=== PATIENT | male | born 1980 | race African-American/Black ===

== ENCOUNTER 2017-03-14 09:05 | Emergency (ER) | payer SELFPAY ==
[2017-03-14 09:10] VITALS: BMI 32.3
--- NOTE | 2017-03-14 09:22 | PDOC ---
History of Present Illness - General History Source: Patient, Old Records Exam Limitations: No Limitations - History of Present Illness Initial Comments: 03/14/17 09:28 The patient is a 36-year-old man with no past medical history who presents to the emergency department via walk-in for further evaluation of palpitations. On ER arrival, patient's heart rate is 94 bpm, oral temperature is 98.8, respiratory rate of 20, blood pressure of 154/98 and an oxygen saturation of 96 % on room air. Patient states that for the past week, he has been experiencing palpitations, described as "a hesitant force within each heart beat'". He states that his palpitations are intermittent, lasting 2 seconds and are sporadic. He also notes associated symptoms of lightheadedness and nausea. He reported experiencing approximately an overall of 50 episodes for the past week. He denies any stressful factors. He denies any caffeine intake. No history personal/family history of heart disease. No other complaints. He denies fever, chills, generalized weakness. He denies chest pain, dizziness, cough, shortness of breath, headache, visual changes, loss of consciousness. He denies abdominal pain, vomiting, diarrhea. No urinary complaints. Allergies: Seasonal Allergies. Past Surgical History: None reported Social History: No tobacco, EtOH and recreational drug use. Primary Care Physician: N/A <Ana Hitchcock - Last Filed: 03/14/17 09:44> <Adama Mahan - Last Filed: 03/14/17 11:02> - General Chief Complaint: Palpitations Stated Complaint: PALPITATIONS Time Seen by Provider: 03/14/17 09:21 Past History <Ana Hitchcock - Last Filed: 03/14/17 09:44> - Past Medical History Other medical history: DENIES - Psycho/Social/Smoking Cessation Hx Anxiety: No Suicidal Ideation: No Smoking Status: No Smoking History: Never smoked Number of Cigarettes Smoked Daily: 0 Hx Alcohol Use: No Drug/Substance Use Hx: No Substance Use Type: None <Adama Mahan - Last Filed: 03/14/17 11:02> - Past Medical History Allergies/Adverse Reactions: Allergies Allergy/AdvReac Type Severity Reaction Status Date / Time No Known Allergies Allergy Verified 03/14/17 09:09 Home Medications: Ambulatory Orders NK [No Known Home Medication] 03/14/17 Review of Systems - Review of Systems Able to Perform ROS?: Yes Comments:: 03/14/17 09:29 GENERAL/CONSTITUTIONAL: No fever or chills. No weakness. HEAD, EYES, EARS, NOSE AND THROAT: No change in vision. No ear pain or discharge. No sore throat. CARDIOVASCULAR: Yes: Palpitations. Lightheadedness. No chest pain or shortness of breath. RESPIRATORY: No cough, wheezing, or hemoptysis. GASTROINTESTINAL: Yes: Nausea. No vomiting, diarrhea or constipation. GENITOURINARY: No dysuria, frequency, or change in urination. MUSCULOSKELETAL: No joint or muscle swelling or pain. No neck or back pain. SKIN: No rash NEUROLOGIC: No headache, vertigo, loss of consciousness, or change in strength/ sensation. ENDOCRINE: No increased thirst. No abnormal weight change. HEMATOLOGIC/LYMPHATIC: No anemia, easy bleeding, or history of blood clots. ALLERGIC/IMMUNOLOGIC: No hives or skin allergy. <Ana Hitchcock - Last Filed: 03/14/17 09:44> *Physical Exam - Vital Signs Last Vital Signs Temp Pulse Resp BP Pulse Ox 98.8 F 97 H 17 154/98 98 03/14/17 09:06 03/14/17 09:23 03/14/17 09:23 03/14/17 09:23 03/14/17 09:23 - Physical Exam Comments: 03/14/17 09:29 GENERAL: Awake, alert, and fully oriented, in no acute distress HEAD: No signs of trauma EYES: PERRLA, EOMI, sclera anicteric, conjunctiva clear ENT: Auricles normal inspection, hearing grossly normal, nares patent, oropharynx clear without exudates. Moist mucosa NECK: Normal ROM, supple, no lymphadenopathy, JVD, or masses LUNGS: Breath sounds equal, clear to auscultation bilaterally. No wheezes, and no crackles HEART: Regular rate and rhythm, normal S1 and S2, no murmurs, rubs or gallops ABDOMEN: Soft, nontender, normoactive bowel sounds. No guarding, no rebound. No masses EXTREMITIES: Normal range of motion, no edema. No clubbing or cyanosis. No cords, erythema, or tenderness NEUROLOGICAL: Cranial nerves II through XII grossly intact. Normal speech, normal gait <Ana Hitchcock - Last Filed: 03/14/17 09:44> - Vital Signs Last Vital Signs Temp Pulse Resp BP Pulse Ox 98.8 F 94 H 20 154/98 96 03/14/17 09:06 03/14/17 09:06 03/14/17 09:06 03/14/17 09:06 03/14/17 09:06 <Adama Mahan - Last Filed: 03/14/17 11:02> Heart Score/ECG Review #1 03/14/17 09:13 Reviewed and interpreted by Dr. Adama Mahan IMPRESSION: Normal sinus rhythm with a rate of 93 bpm. Moderate voltage criteria for LVH. No ST and T wave changes. No change when compared to previous EKG on 02/10/2013. <Ana Hitchcock - Last Filed: 03/14/17 09:44> ED Treatment Course - LABORATORY CBC & Chemistry Diagram: 03/14/17 09:26 03/14/17 09:30 <Adama Mahan - Last Filed: 03/14/17 11:02> Medical Decision Making - Medical Decision Making 03/14/17 09:38 The patient is a 36-year-old man with no past medical history who presents to the emergency department via walk-in for further evaluation of palpitations. On ER arrival, patient's heart rate is 94 bpm, oral temperature is 98.8, respiratory rate of 20, blood pressure of 154/98 and an oxygen saturation of 96 % on room air. Patient states that for the past week, he has been experiencing palpitations, described as "a hesitant force within each heart beat'". He states that his palpitations are intermittent, lasting 2 seconds and are sporadic. He also notes associated symptoms of lightheadedness and nausea. He reported experiencing approximately an overall of 50 episodes for the past week. He denies any stressful factors. He denies any caffeine intake. No history personal/family history of heart disease. No other complaints. Differential diagnoses include but are not limited to: electrolyte abnormality, anxiety, coronary artery disease Will order electrocardiogram, Chest X-Ray and labs. Will reassess. <Ana Hitchcock - Last Filed: 03/14/17 09:44> - Medical Decision Making 03/14/17 10:58 Patient experienced four episodes of hesitation while in ED, but nothing showed up on our monitor/telemetry. CXR unchanged from previous and Labs all unremarkable. EKG is normal and unchanged from previous. Will DC Home to follow up with Cardiology. Dr. Ramirez is station chief. <Adama Mahan - Last Filed: 03/14/17 11:02> *DC/Admit/Observation/Transfer - Attestations Scribe Attestion: 03/14/17 09:29 Documentation prepared by Ana Hitchcock, acting as medical sociologist for Adama Mahan DO. <Ana Hitchcock - Last Filed: 03/14/17 09:44> - Discharge Dispostion Admit: No <Adama Mahan - Last Filed: 03/14/17 11:02> Diagnosis at time of Disposition: Palpitations - Discharge Dispostion Disposition: HOME Condition at time of disposition: Good - Referrals Referrals: Joseph Ramirez MD [Staff Physician] - - Patient Instructions Printed Discharge Instructions: DI for Palpitations Additional Instructions: Mike- All of your tests here today were normal, and eventhough you felt hesitations, we did not see anything abnormal on your monitor. Please follow up with cardiology this coming week. Return to us if any problems. Best- Dr. Adama Mahan
[2017-03-14 09:50] LABS: BASOPHIL 0.8 % (0-2.0); EOSINOPHIL 5.7 % (0-4.5); MCH 28.6 pg (25.7-33.7); MCHC 33.4 g/dl (32.0-35.9); MEAN CELL VOLUME 85.7 fl (80-96); MEAN PLT VOLUME 8.6 fl (7.5-11.1); PLATELET COUNT 249 K/MM3 (134-434); RDW 12.7 % (11.9-15.9); WHITE BLOOD COUNT 5.7 K/mm3 (4.0-10.0)
[2017-03-14 10:09] LABS: ALBUMIN 3.9 g/dl (3.4-5.0); ANION GAP 7 (8-16); BILIRUBIN,TOTAL 0.7 mg/dL (0.2-1.0); CALCIUM 8.9 mg/dL (8.5-10.1); CO2 29 mmol/L (21-32); COCKROFT - GAULT 160; GLUCOSE,RANDOM 130 mg/dL (74-106); SGOT/AST 19 U/L (15-37); SGPT/ALT 28 U/L (12-78)
[2017-03-14 10:11] LABS: ALK PHOS 79 U/L (45-117); TROPONIN I < 0.02 ng/ml (0.00-0.05)
[2017-03-14 10:11] LABS: INR 1.13 (0.82-1.09); PROTHROMBIN TIME (PATIENT) 12.5 SEC (9.98-11.88)
[2017-03-14 11:25] VITALS: BP 157/94; PULSE 87; TEMP 98.2
--- NOTE | 2017-03-15 09:02 | EKG ---
Test Reason : Blood Pressure : / mmHG Vent. Rate : 093 BPM Atrial Rate : 093 BPM P-R Int : 120 ms QRS Dur : 094 ms QT Int : 360 ms P-R-T Axes : 041 -12 019 degrees QTc Int : 447 ms NORMAL SINUS RHYTHM MODERATE VOLTAGE CRITERIA FOR LVH, MAY BE NORMAL VARIANT BORDERLINE ECG WHEN COMPARED WITH ECG OF 10-FEB-2013 19:41, NO SIGNIFICANT CHANGE WAS FOUND Confirmed by KEVIN IRIZARRY MD ([id number]) on 03/15/2017 9:01:59 AM Referred By: Confirmed By:KEVIN IRIZARRY MD
== END 2017-03-14 11:32 | disposition home or self-care (01) ==
LOC: JER 09:05
DX: R00.2 Palpitations (principal)
CPT/HCPCS: 36415; 71010-TC; 80053; 82550; 82553; 84443; 84484; 85025; 85610; 93005; 93010; 99283-25

== ENCOUNTER 2017-10-09 11:52 | Emergency (ER) | payer SELFPAY ==
[2017-10-09 11:57] VITALS: BMI 30.7
--- NOTE | 2017-10-09 12:19 | PDOC ---
History of Present Illness - General History Source: Patient Exam Limitations: No Limitations - History of Present Illness Initial Comments: 10/09/17 12:44 The patient is a 37-year-old male with no significant past medical history, who presents to the emergency department with left-sided abdominal pain for 3 days. He states the pain was initially intermittent, but has been constant for the last 2 days. He describes the pain as a pressure-like sensation, non-radiating, and 7/10 in severity. He has not taken anything for pain. He notes occasional dizziness and mild bilateral back pain but denies dizziness and back pain upon interview. He complains of frequent urination and increased thirst recently. He states his bowel movements are normal. The patient denies chest pain, shortness of breath, or headache. The patient denies fever, chills, nausea, vomit, diarrhea and constipation. The patient denies flank pain, dysuria, urgency and hematuria. Family PMHx: diabetes Allergies: NDKA Past Surgical History: None reported Social History: No toxic habits reported PCP: Dr. Abel Rincon <Pari Granda - Last Filed: 10/09/17 14:13> <Maria Hoffmann - Last Filed: 10/09/17 16:22> - General Chief Complaint: Pain Stated Complaint: LT SIDE PAIN Time Seen by Provider: 10/09/17 12:19 Past History <Pari Granda - Last Filed: 10/09/17 14:13> - Past Medical History COPD: No Other medical history: NONE - Suicide/Smoking/Psychosocial Hx Smoking Status: No Smoking History: Never smoked Number of Cigarettes Smoked Daily: 0 Hx Alcohol Use: No Drug/Substance Use Hx: No Substance Use Type: None <Maria Hoffmann - Last Filed: 10/09/17 16:22> - Past Medical History Allergies/Adverse Reactions: Allergies Allergy/AdvReac Type Severity Reaction Status Date / Time No Known Allergies Allergy Verified 10/09/17 11:56 Home Medications: Ambulatory Orders Ciprofloxacin [Cipro -] 500 mg PO BID #10 tablet 10/09/17 Metformin HCl [Glucophage -] 500 mg PO BID #14 tablet 10/09/17 Polyethylene Glycol 3350 [Miralax (For Bowel Prep) -] 17 gm PO DAILY PRN #1 bottle 10/09/17 Review of Systems - Review of Systems Able to Perform ROS?: Yes Comments:: 10/09/17 12:44 CONSTITUTIONAL: Pt denies fever, chills, weakness HEENT: denies visual changes, sore throat, ear pain RESPIRATORY: denies cough, SOB, hemoptysis CARDIOVASCULAR: denies chest pain, palpitations, lightheadedness, leg swelling GI: (+) abdominal pain. denies nausea, vomiting, diarrhea, constipation, blood per rectum, melena : (+) frequency. denies dysuria, discharge MUSCULOSKELETAL: denies back pain, joint swelling, myalgias SKIN: denies bruising, erythema, rash NEUROLOGICAL: denies headache, numbness, focal weakness, tingling, ataxia, weakness HEMATOLOGIC: denies anemia, easy bruising, easy bleeding <Pari Granda - Last Filed: 10/09/17 14:13> *Physical Exam - Vital Signs Last Vital Signs Temp Pulse Resp BP Pulse Ox 99.3 F 99 H 20 148/94 98 10/09/17 11:53 10/09/17 11:53 10/09/17 11:53 10/09/17 11:53 10/09/17 11:53 - Physical Exam Comments: 10/09/17 12:44 GENERAL: The patient is awake, alert, and fully oriented, Nontoxic - in no acute distress. HEAD: Normocephalic, atraumatic. EYES: extraocular movements intact, sclera anicteric, conjunctiva clear. ENT: Normal voice, moist mucous membranes. NECK: Normal range of motion, supple without lymphadenopathy, JVD, or masses. LUNGS: Breath sounds equal, clear to auscultation bilaterally. No wheezes, no crackles, no rales. HEART: Regular rate and rhythm, normal S1 and S2 without murmur, rub or gallop. ABDOMEN: (+) Mildly distended. Soft, nontender, normoactive bowel sounds. No guarding, no rebound. No masses. No CVA tenderness. EXTREMITIES: Normal range of motion, no edema. No clubbing or cyanosis. No cords , erythema, or tenderness. NEUROLOGICAL: Fully Oriented, Alert, Normal Mood/Affect, Motor Strength 5/5. No facial asymmetry, Normal speech SKIN: Warm, Dry, normal turgor, no rashes or lesions noted. <Pari Granda - Last Filed: 10/09/17 14:13> - Vital Signs Last Vital Signs Temp Pulse Resp BP Pulse Ox 99.3 F 99 H 20 148/94 98 10/09/17 11:53 10/09/17 11:53 10/09/17 11:53 10/09/17 11:53 10/09/17 11:53 <Maria Hoffmann - Last Filed: 10/09/17 16:22> ED Treatment Course - LABORATORY CBC & Chemistry Diagram: 10/09/17 12:45 10/09/17 12:45 - RADIOLOGY Radiograph Interpretation: 10/09/17 14:13 EXAM#: TYPE/EXAM: RESULT: [id number] RAD/ABDOMEN FLAT UPRIGHT Abdomen: Abdominal pain Imaging reveals scoliosis, large heart, clear lung bases and retained stool with no sign of an obstruction. Free air is not seen. Organomegaly is not visualized. The are some minimal degenerative changes. If symptoms persist, further imaging may be of help. Impression: No acute pathology. Large heart. Retained stool. - Medications Given in the ED: ED Medications Discontinued Medications Generic Name Dose Route Start Last Admin Trade Name Soumya PRN Reason Stop Dose Admin Ketorolac Tromethamine 30 mg 10/09/17 12:29 10/09/17 12:32 Toradol Injection - IM 10/09/17 12:30 30 mg ONCE ONE Administration <Pari Granda - Last Filed: 10/09/17 14:13> - LABORATORY CBC & Chemistry Diagram: 10/09/17 12:45 10/09/17 12:45 <Maria Hoffmann - Last Filed: 10/09/17 16:22> Medical Decision Making - Medical Decision Making 10/09/17 12:35 I, Dr. Maria Hoffmann, attest that the scribes documentation that appears above has been prepared under my direction and personally reviewed by me. I confirmed that the note above accurately reflects all work, treatment, procedures, and medical decision-making performed by me. 10/09/17 12:35 Pt presents to ED c/o left side abdominal pain that started 3 days ago was initially intermittent but is now constant 7/10 pain. PT has not taken any meds for pain, pt c/o excessive thirst and urination but no fever , or dysuria, pt with family history of diabetes but he has no medical problems, says he is having nl BM's. Will obtain labs, ua, abdominal xray . Differential diagnosis: uti, diverticulitis, constipation, undiagnosed diabetes Pt's labs noted, pt with bs over 400 with negative ketones, pt given one liter fluid bolus and will repeat bgm. Pt has urien suggestive of early uti and xray shows meod stool, once blood sugar is lower will dc home with metformin 500mg bid, along with 5 days of go and miralax for constipation, Case discussed with Dr. Gilbert, pt to f/u in clinic on for reevLAUTION. Pt AGREES WITH THIS DC PLAN 10/09/17 15:28 10/09/17 15:31 PT'S LEFT SIDE ABDOMINAL PAIN RESOLVED AFTER TORADOL 10/09/17 16:21 repeat blood sugar 283, pt stable for dc home <Maria Hoffmann - Last Filed: 10/09/17 16:22> *DC/Admit/Observation/Transfer - Attestations Scribe Attestion: 10/09/17 12:44 Documentation prepared by Pari Granda, acting as medical tech for Maria Hoffmann MD/. <aPri Granda - Last Filed: 10/09/17 14:13> - Discharge Dispostion Admit: No <Maria Hoffmann - Last Filed: 10/09/17 16:22> Diagnosis at time of Disposition: Diabetes mellitus, UTI (urinary tract infection), Constipation - Discharge Dispostion Disposition: HOME Condition at time of disposition: Stable - Prescriptions Prescriptions: Ciprofloxacin [Cipro -] 500 mg PO BID #10 tablet Metformin HCl [Glucophage -] 500 mg PO BID #14 tablet Polyethylene Glycol 3350 [Miralax (For Bowel Prep) -] 17 gm PO DAILY PRN #1 bottle PRN Reason: Constipation - Referrals Referrals: Abel Rincon MD [Primary Care Provider] - - Patient Instructions Printed Discharge Instructions: Urinary Tract Infection, Type 2 Diabetes, Constipation Additional Instructions: pt to return to ED for fever, inc pain in abdomen,nausea and vomiting or as needed,otherwise Pt to f/ u with pcp on 10-11-17. Pt tot take medication as prescribed
[2017-10-09] MEDS ORDERED: KETOROLAC TROMETHAMINE 30 MG/1 ML VIAL IM ONE (12:29)
[2017-10-09] MEDS ORDERED: KETOROLAC TROMETHAMINE 30 MG/1 ML VIAL ONE (12:32)
[2017-10-09 13:08] LABS: BASOPHIL 0.8 % (0-2.0); EOSINOPHIL 2.4 % (0-4.5); MCH 28.6 pg (25.7-33.7); MCHC 33.2 g/dl (32.0-35.9); MEAN CELL VOLUME 86.1 fl (80-96); MEAN PLT VOLUME 9.6 fl (7.5-11.1); NEUTROPHILS 48.3 % (42.8-82.8); PLATELET COUNT 261 K/MM3 (134-434); RDW 12.6 % (11.9-15.9); WHITE BLOOD COUNT 5.6 K/mm3 (4.0-10.0)
[2017-10-09 13:12] LABS: ALBUMIN 3.9 g/dl (3.4-5.0); ANION GAP 5 (8-16); CALCIUM 9.4 mg/dL (8.5-10.1); CO2 30 mmol/L (21-32); CREATININE 1.1 mg/dL (0.7-1.3); SGOT/AST 15 U/L (15-37); SGPT/ALT 40 U/L (12-78)
[2017-10-09 13:14] LABS: ALK PHOS 124 U/L (45-117); BILIRUBIN,TOTAL 0.3 mg/dL (0.2-1.0); TOT PROT 8.2 g/dl (6.4-8.2)
[2017-10-09 13:16] LABS: GLUCOSE,RANDOM 401 mg/dL (74-106)
[2017-10-09 13:41] LABS: URINE APPEARANCE CLEAR; URINE BILIRUBIN NEGATIVE (NEGATIVE); URINE BLOOD 1+ (NEGATIVE); URINE COLOR LT. YELLOW; URINE GLUCOSE (UA) 2+ (NEGATIVE); URINE KETONE TRACE (NEGATIVE); URINE NITRITE NEGATIVE (NEGATIVE); URINE PROTEIN TRACE (NEGATIVE); URINE UROBILINOGEN 0.2 mg/dL (0.2-1.0)
[2017-10-09 13:56] LABS: URINE RBC 12 /hpf (0-3); URINE WBC 35 /hpf (3-5)
[2017-10-09] MEDS ORDERED: SODIUM CHLORIDE 0.9% 500 ML INFUS.BAG IV STA (14:37)
[2017-10-09] MEDS ORDERED: HEMOQUE TEST 1 EACH EACH ONE (16:13)
[2017-10-09 16:44] VITALS: BP 128/89; PULSE 82; TEMP 98.2
[2017-10-09 19:26] LABS: URINE LEUK ESTERASE Negative (NEGATIVE)
== END 2017-10-09 16:44 | disposition home or self-care (01) ==
LOC: JER 11:52
PROC: 3E0233Z Introduction of Anti-inflammatory into Muscle, Percutaneous Approach (ICD-10-PCS; principal; 2017-10-09)
DX: N39.0 Urinary tract infection, site not specified (principal); K59.00 Constipation, unspecified; E11.9 Type 2 diabetes mellitus without complications; Z79.84 Long term (current) use of oral hypoglycemic drugs
CPT/HCPCS: 36415; 74020-TC; 80053; 81003; 81015; 82009; 83036; 85025; 99283-25

== ENCOUNTER 2018-08-04 17:07 | Emergency (ER) | payer SELFPAY ==
[2018-08-04 17:11] VITALS: BP 139/88; PULSE 89; TEMP 98.5; BMI 30.3
--- NOTE | 2018-08-04 17:11 | PDOC ---
Rapid Medical Evaluation Time Seen by Provider: 08/04/18 17:08 Medical Evaluation: Allergies Allergy/AdvReac Type Severity Reaction Status Date / Time No Known Allergies Allergy Verified 10/09/17 11:56 I have performed a brief in-person evaluation of this patient. The patient presents with a chief complaint of: left low back, left elbow and left lower leg pain s/p slip and fall at home yesterday. No LOC. No head trauma. Pertinent physical exam findings: Patient is ambulatory with normal gait. Minimal TTP of left lumbar spine. No midline lumbar spine TTP or step offs I have ordered the following: nothing The patient will proceed to the ED for further evaluation. Discharge Disposition - Diagnosis Back pain - Referrals - Patient Instructions - Post Discharge Activity
[2018-08-04] MEDS ORDERED: IBUPROFEN 600 MG TABLET (FP) PO ONE ×2 (17:24→17:29)
--- NOTE | 2018-08-04 17:43 | PDOC ---
History of Present Illness - General Chief Complaint: Injury Stated Complaint: PAIN, ACUTE Time Seen by Provider: 08/04/18 17:08 History Source: Patient Exam Limitations: No Limitations - History of Present Illness Initial Comments: 08/04/18 17:31 37 yr male no pmhx states he fell down one step yesterday and hit his low back to step and left lower calf. no head trauma , pt did not take any meds for pain. Pt c/o pain to left lower ribs in the back and calf pain. pt ambulating freely. Severity: reports: mild Past History - Past Medical History Allergies/Adverse Reactions: Allergies Allergy/AdvReac Type Severity Reaction Status Date / Time No Known Allergies Allergy Verified 08/04/18 17:08 Home Medications: Ambulatory Orders Ciprofloxacin [Cipro -] 500 mg PO BID #10 tablet 10/09/17 Polyethylene Glycol 3350 [Miralax (For Bowel Prep) -] 17 gm PO DAILY PRN #1 bottle 10/09/17 metFORMIN HCL [Glucophage -] 500 mg PO BID #14 tablet 10/09/17 COPD: No DVT: No - Suicide/Smoking/Psychosocial Hx Smoking Status: No Smoking History: Never smoked Number of Cigarettes Smoked Daily: 0 Information on smoking cessation initiated: No Hx Alcohol Use: No Drug/Substance Use Hx: No Substance Use Type: None Trauma Specific PMHX - Complaint Specific PMHX Arthritis: No Back Injury: No Neck Injury: No Hx Sacro Iliac Joint Dysfunction: No Review of Systems - Review of Systems Able to Perform ROS?: Yes Is the patient limited Mac[place] proficient: No Constitutional: No: Symptoms Reported HEENTM: No: Symptoms Reported Respiratory: No: Symptoms reported Cardiac (ROS): No: Symptoms Reported ABD/GI: No: Symptoms Reported : No: Symptoms Reported Musculoskeletal: Yes: Symptoms Reported Integumentary: No: Symptoms Reported Neurological: No: Symptoms reported *Physical Exam - Vital Signs Last Vital Signs Temp Pulse Resp BP Pulse Ox 98.5 F 89 18 139/88 100 08/04/18 17:08 08/04/18 17:08 08/04/18 17:08 08/04/18 17:08 08/04/18 17:08 - Physical Exam General Appearance: Yes: Nourished, Appropriately Dressed HEENT: positive: EOMI, SAPNA Neck: positive: Supple. negative: Tender Respiratory/Chest: positive: Lungs Clear, Normal Breath Sounds Cardiovascular: positive: Regular Rhythm, Regular Rate Gastrointestinal/Abdominal: positive: Normal Bowel Sounds, Soft. negative: Tender Musculoskeletal: positive: Normal Inspection, Other (TTP left lower ribs posteriorly, no crepitus, skin intact no echymosis ). negative: CVA Tenderness , CVA Tenderness (R), CVA Tenderness (L), Vertebral Tenderness Extremity: positive: Normal Capillary Refill, Tender (lateral left calf soft tissue tenderness no bony tenderness ) Integumentary: positive: Normal Color, Dry, Warm Neurologic: positive: Fully Oriented, Alert, Normal Mood/Affect, Normal Response , Motor Strength 03/12 ED Treatment Course - RADIOLOGY Radiology Studies Ordered: Category Date Time Status RIBS-LEFT SIDE [RAD] Stat Radiology 08/04/18 17:24 Ordered - Medications Given in the ED: ED Medications Discontinued Medications Generic Name Dose Route Start Last Admin Trade Name Freq PRN Reason Stop Dose Admin Ibuprofen 600 mg 08/04/18 17:24 08/04/18 17:28 Motrin - PO 08/04/18 17:25 600 mg ONCE ONE Administration Medical Decision Making - Medical Decision Making 08/04/18 17:34 cc: mechanical fall yesterday on a step hit back and lower leg no pain meds taken [employer] no abd pain no urinary complaints 08/04/18 17:52 *DC/Admit/Observation/Transfer Diagnosis at time of Disposition: Back contusion Qualifiers: Encounter type: initial encounter Laterality: left Qualified Code(s): S20.222A - Contusion of left back wall of thorax, initial encounter Contusion of leg Qualifiers: Encounter type: initial encounter Laterality: left Qualified Code(s): S80.12XA - Contusion of left lower leg, initial encounter - Discharge Dispostion Disposition: HOME Condition at time of disposition: Good - Referrals Referrals: Ryan Ruiz MD [Staff Physician] - - Patient Instructions Additional Instructions: take naprosyn or ibuprofen for pain as directed (over the counter) apply warm compresses for pain every 4-6hrs for pain follow with your doctor or the orthopedist for follow up next week if symptoms worsen or persist - Post Discharge Activity
== END 2018-08-04 18:09 | disposition home or self-care (01) ==
LOC: JERFT 17:07
DX: S20.222A Contusion of left back wall of thorax, initial encounter (principal); S80.02XA Contusion of left knee, initial encounter; W10.8XXA Fall (on) (from) other stairs and steps, initial encounter; Y93.89 Activity, other specified; Y92.038 Other place in apartment as the place of occurrence of the external cause; Y99.8 Other external cause status
CPT/HCPCS: 71101-TC-FY; 99281-25

== ENCOUNTER 2019-02-03 08:02 | Emergency (ER) | payer OTHER ==
[2019-02-03 08:06] VITALS: TEMP 98.8; BMI 30.9
--- NOTE | 2019-02-03 09:23 | PDOC ---
History of Present Illness - General History Source: Patient Exam Limitations: No Limitations - History of Present Illness Initial Comments: 02/03/19 09:44 38-year-old male presents to ED with complaints of intermittent dizziness throughout the past week without aggravating or alleviating factors. Patient states history of diabetes and blood sugar this morning was 202. Patient denies headache, visual changes, nausea, neck pain, ear pain, recent dental work head injury recent travel, chest pain or shortness of breath. Patient denies bowel or urine complaints. Patient describes the dizziness as feeling lightheaded to the point that he will fall if he does not hold onto an item or sit down. Timing/Duration: 1 week, intermittent Severity: mild Associated Symptoms: reports: other (dizziness) <Trina Hinosn - Last Filed: 02/03/19 11:08> <Shawnee Bentley - Last Filed: 02/03/19 12:06> - General Chief Complaint: Lightheaded Stated Complaint: DIZZINESS Time Seen by Provider: 02/03/19 08:53 Past History - Travel Traveled outside of the country in the last 30 days: No Close contact w/someone who was outside of country & ill: No - Past Medical History COPD: No DVT: No Diabetes: Yes - Suicide/Smoking/Psychosocial Hx Smoking Status: No Smoking History: Never smoked Have you smoked in the past 12 months: No Number of Cigarettes Smoked Daily: 0 Information on smoking cessation initiated: No Hx Alcohol Use: No Drug/Substance Use Hx: No Substance Use Type: None Patient Lives Alone: No Lives with/in: spouse/SO <Trina Hinson - Last Filed: 02/03/19 11:08> <Shawnee Bentley - Last Filed: 02/03/19 12:06> - Past Medical History Allergies/Adverse Reactions: Allergies Allergy/AdvReac Type Severity Reaction Status Date / Time No Known Allergies Allergy Verified 08/04/18 17:08 Home Medications: Ambulatory Orders Meclizine HCl 25 mg PO BID PRN #12 tablet 02/03/19 Metformin HCl [Glucophage] 500 mg PO BID #28 tablet 02/03/19 Review of Systems - Review of Systems Able to Perform ROS?: No Is the patient limited Burkinan proficient: No Constitutional: No: Symptoms Reported HEENTM: No: Symptoms Reported Respiratory: No: Symptoms reported Cardiac (ROS): Yes: Lightheadedness ABD/GI: No: Symptoms Reported : No: Symptoms Reported Musculoskeletal: No: Symptoms Reported Integumentary: No: Symptoms Reported Neurological: Yes: Dizziness. No: Headache, Weakness Endocrine: No: Symptoms Reported Hematologic/Lymphatic: No: Symptoms Reported <Trina Hinson - Last Filed: 02/03/19 11:08> *Physical Exam - Vital Signs Last Vital Signs Temp Pulse Resp BP Pulse Ox 98.8 F 86 18 139/85 100 02/03/19 08:03 02/03/19 08:03 02/03/19 08:03 02/03/19 08:03 02/03/19 08:03 - Physical Exam General Appearance: Yes: Nourished, Appropriately Dressed. No: Apparent Distress HEENT: positive: EOMI, SAPNA, TMs Normal (impacted cerumen to left ear. Unable to visualize TM), Pharynx Normal. negative: Pale Conjunctivae Neck: positive: Supple Respiratory/Chest: positive: Lungs Clear, Normal Breath Sounds. negative: Respiratory Distress, Accessory Muscle Use Cardiovascular: positive: Regular Rhythm, Regular Rate. negative: Murmur Gastrointestinal/Abdominal: positive: Soft. negative: Tenderness Extremity: positive: Normal Capillary Refill. negative: Pedal Edema Integumentary: positive: Normal Color, Warm, Moist Neurologic: positive: Motor Strength 5/5, Other (- hallpikes) <SravanTrina - Last Filed: 02/03/19 11:08> - Vital Signs Last Vital Signs Temp Pulse Resp BP Pulse Ox 98.8 F 86 18 139/85 99 02/03/19 08:03 02/03/19 08:03 02/03/19 08:03 02/03/19 08:03 02/03/19 09:22 <ShereeShawneeduyen Porter - Last Filed: 02/03/19 12:06> Heart Score/ECG Review - ECG Intrepretation Rhythm: Regular Rhythm (nsr at 93, intervals are regular) <Trina Hinson - Last Filed: 02/03/19 11:08> ED Treatment Course - LABORATORY CBC & Chemistry Diagram: 02/03/19 09:25 02/03/19 09:25 - RADIOLOGY Radiology Studies Ordered: Category Date Time Status HEAD CT WITHOUT CONTRAST [CT] Stat CT Scan 02/03/19 09:04 Ordered CHEST X-RAY PORTABLE* [RAD] Stat Radiology 02/03/19 09:04 Ordered <Trina Hinson - Last Filed: 02/03/19 11:08> - LABORATORY CBC & Chemistry Diagram: 02/03/19 09:25 02/03/19 09:25 - ADDITIONAL ORDERS Additional order review: Laboratory Results 02/03/19 02/03/19 02/03/19 11:39 10:15 09:25 Sodium 136 Potassium 4.0 Chloride 103 Carbon Dioxide 29 Anion Gap 4 L BUN 11 Creatinine 0.9 Creat Clearance w eGFR 94.44 POC Glucometer 193 Random Glucose 308 H* Calcium 8.9 Magnesium 2.5 H Total Bilirubin 0.4 AST 13 L ALT 27 Alkaline Phosphatase 94 Total Protein 7.9 Albumin 3.7 Urine Color Yellow Urine Appearance Clear Urine pH 7.0 Ur Specific [place] 1.029 Urine Protein Negative Urine Glucose (UA) 3+ H Urine Ketones Negative Urine Blood Negative Urine Nitrite Negative Urine Bilirubin Negative Urine Urobilinogen 0.2 Ur Leukocyte Esterase Negative 02/03/19 02/03/19 11:39 09:25 RBC 4.83 MCV 86.6 MCHC 33.6 RDW 12.9 MPV 9.1 Neutrophils % 44.7 Lymphocytes % 43.9 H Monocytes % 7.0 Eosinophils % 3.3 Basophils % 1.1 POC Glucometer 193 - Medications Given in the ED: ED Medications Discontinued Medications Generic Name Dose Route Start Last Admin Trade Name Freq PRN Reason Stop Dose Admin Sodium Chloride 1,000 ml 02/03/19 10:45 02/03/19 10:57 Normal Saline - IV 02/03/19 10:46 1,000 ml ONCE ONE Administration <Shawnee Bentley - Last Filed: 02/03/19 12:06> Medical Decision Making - Medical Decision Making 02/03/19 09:06 CC: Patient with intermittent dizziness without aggravating alleviating factors. Patient has no complaints of headache, nausea visual changes or recent head injury. Exam. Patient with normal neurofocal findings. Hallpike's negative. EKG normal sinus. Plan: Labs, urine, EKG, chest x-ray and head CT 02/03/19 10:26 Laboratory Tests 02/03/19 02/03/19 09:25 09:25 WBC 4.8 Hgb 14.0 Hct 41.8 Absolute Neuts (auto) 2.1 Lymphocytes % 43.9 H Sodium 136 Potassium 4.0 Chloride 103 Carbon Dioxide 29 Anion Gap 4 L BUN 11 Creatinine 0.9 Random Glucose 308 H* Calcium 8.9 Magnesium 2.5 H Total Bilirubin 0.4 AST 13 L ALT 27 Alkaline Phosphatase 94 Total Protein 7.[address] negative for acute pathology including intracranial lesion or hemorrhage. There is minimal volume loss which is nonspecific. Chest x-ray shows no acute pathology. Patient is currently asymptomatic. 02/03/19 10:36 Laboratory Tests 02/03/19 10:15 Urine Glucose (UA) 3+ H Urine Ketones Negative Urine Blood Negative Urine Nitrite Negative Urine Bilirubin Negative Ur Leukocyte Esterase Negative 02/03/19 11:08 Patient will be given meclizine for discharge along with neurology follow-up as this may be vertigo related to cerumen impaction versus other nonemergent underlying neurological findings. Patient will be given a referral also to ENT for cerumen impaction removal as per his request. Patient states has not been on his Glucophage for approximately 5 months. Patient has an appointment with Dr. Rincon on Wednesday. Patient will be given a refill for his Glucophage for 2 weeks <Trina Hinson - Last Filed: 02/03/19 11:08> - Medical Decision Making The patient was seen and evaluated in conjunction with midlevel provider under my direct supervision, ancillary studies were reviewed. I agree with the plan as outlined by HERREAR Hinson. HPI, workup/dispo as outlined. VS reviewed, wnl. hyperglycemia noted, on regimen and has missed his meds x months. recheck glucose after IVF, improved to 190. EKG NSR, nonischemic. CT head neg for pathology. vertigo treated conservatively, f/u neuro DC in stable condition, return precautions. 02/03/19 12:04 <Shawnee Bentley - Last Filed: 02/03/19 12:06> *DC/Admit/Observation/Transfer <Trina Hinson - Last Filed: 02/03/19 11:08> <Shawnee Bentley - Last Filed: 02/03/19 12:06> Diagnosis at time of Disposition: Diabetes mellitus, Dizziness - Discharge Dispostion Disposition: HOME Condition at time of disposition: Good - Prescriptions Prescriptions: Meclizine HCl 25 mg PO BID PRN #12 tablet PRN Reason: Vertigo Metformin HCl [Glucophage] 500 mg PO BID #28 tablet - Referrals Referrals: Abel Rincon MD [Primary Care Provider] - Manpreet Mack MD [Staff Physician] - Lauro Hays MD [Staff Physician] - - Patient Instructions Printed Discharge Instructions: DI for Cerumen Impaction, DI for Vertigo Additional Instructions: At this time recommend following up with ENT for cerumen impaction removal. Please start Glucophage today and follow up with Dr. Rincon on Wednesday as already scheduled. Please also take meclizine for dizziness as needed. If no improvement please call the neurologist and schedule an appointment - Post Discharge Activity
[2019-02-03 09:42] LABS: BASO % 1.1 % (0-2.0); EOS % 3.3 % (0-4.5); HEMATOCRIT 41.8 % (35.4-49); LYMPH % 43.9 % (8-40); MCH 29.1 pg (25.7-33.7); MCHC 33.6 g/dl (32.0-35.9); MEAN CELL VOLUME 86.6 fl (80-96); MEAN PLT VOLUME 9.1 fl (7.5-11.1); NEUT % 44.7 % (42.8-82.8); PLATELET COUNT 237 K/MM3 (134-434); RBC 4.83 M/mm3 (4.00-5.60); RDW 12.9 % (11.9-15.9); WHITE BLOOD COUNT 4.8 K/mm3 (4.0-10.0)
[2019-02-03 10:08] LABS: ALBUMIN 3.7 g/dl (3.4-5.0); ALK PHOS 94 U/L (45-117); ANION GAP 4 MMOL/L (8-16); BILIRUBIN,TOTAL 0.4 mg/dL (0.2-1); BLOOD UREA NITROGEN 11 mg/dL (7-18); CALCIUM 8.9 mg/dL (8.5-10.1); CHLORIDE 103 mmol/L (98-107); CO2 29 mmol/L (21-32); CREATININE 0.9 mg/dL (0.55-1.3); MAGNESIUM 2.5 mg/dL (1.8-2.4); SGOT/AST 13 U/L (15-37); SGPT/ALT 27 U/L (13-61); SODIUM 136 mmol/L (136-145); TOT PROT 7.9 g/dl (6.4-8.2)
[2019-02-03 10:09] LABS: GLUCOSE,RANDOM 308 mg/dL (74-106)
[2019-02-03 10:24] LABS: URINE APPEARANCE CLEAR; URINE BILIRUBIN NEGATIVE (NEGATIVE); URINE COLOR YELLOW; URINE GLUCOSE (UA) 3+ (NEGATIVE); URINE KETONE NEGATIVE (NEGATIVE); URINE LEUK ESTERASE NEGATIVE (NEGATIVE); URINE NITRITE NEGATIVE (NEGATIVE); URINE PROTEIN NEGATIVE (NEGATIVE); URINE UROBILINOGEN 0.2 mg/dL (0.2-1.0)
[2019-02-03] MEDS ORDERED: SODIUM CHLORIDE 0.9% 500 ML INFUS.BAG IV ONE (10:45)
[2019-02-03 12:09] VITALS: BP 148/95; PULSE 84
--- NOTE | 2019-02-06 11:21 | EKG ---
Test Reason : Blood Pressure : / mmHG Vent. Rate : 085 BPM Atrial Rate : 085 BPM P-R Int : 162 ms QRS Dur : 096 ms QT Int : 370 ms P-R-T Axes : 064 -04 035 degrees QTc Int : 440 ms NORMAL SINUS RHYTHM MODERATE VOLTAGE CRITERIA FOR LVH, MAY BE NORMAL VARIANT BORDERLINE ECG WHEN COMPARED WITH ECG OF 14-MAR-2017 09:13, NO SIGNIFICANT CHANGE WAS FOUND Confirmed by ANUSHA MACDONALD, AREN ([id number]) on 02/06/2019 11:21:07 AM Referred By: Confirmed By:AREN TAVARES MD
== END 2019-02-03 11:50 | disposition home or self-care (01) ==
LOC: JER 08:02
PROC: 3E0337Z Introduction of Electrolytic and Water Balance Substance into Peripheral Vein, Percutaneous Approach (ICD-10-PCS; principal; 2019-02-03)
DX: E11.9 Type 2 diabetes mellitus without complications (principal); R42 Dizziness and giddiness
CPT/HCPCS: 36415; 70450-TC; 71046-TC-FY; 80053; 81003; 82962; 83735; 85025; 87086; 93005; 93010; 99283-25

== ENCOUNTER 2019-07-03 17:59 | Emergency (ER) | payer OTHER ==
--- NOTE | 2019-07-03 18:19 | PDOC ---
Rapid Medical Evaluation Chief Complaint: Pain Time Seen by Provider: 07/03/19 18:16 Medical Evaluation: Allergies Allergy/AdvReac Type Severity Reaction Status Date / Time No Known Allergies Allergy Verified 08/04/18 17:08 07/03/19 18:18 This patient had a brief in-person evaluation in triage cc: pain to left groin x 1 week, denies dysuria, heavy lifting or penile discharge HPI: NAD even and unlabored breathing + tenderness in left groin orders: u/a urinalysis, urine culture This patient will proceed to ED for further evaluation. Discharge Disposition - Diagnosis Left groin pain - Referrals - Patient Instructions - Post Discharge Activity
[2019-07-03 18:20] VITALS: BP 146/86; PULSE 91; TEMP 98.1; BMI 31.1
--- NOTE | 2019-07-03 18:39 | PDOC ---
History of Present Illness - General Chief Complaint: Pain Stated Complaint: BLADDER PAIN Time Seen by Provider: 07/03/19 18:16 - History of Present Illness Initial Comments: 07/03/19 18:39 38-year-old male with atraumatic left groin pain times 1 week Past History - Past Medical History Allergies/Adverse Reactions: Allergies Allergy/AdvReac Type Severity Reaction Status Date / Time No Known Allergies Allergy Verified 07/03/19 18:18 Home Medications: Ambulatory Orders Meclizine HCl 25 mg PO BID PRN #12 tablet 02/03/19 Metformin HCl [Glucophage] 500 mg PO BID #28 tablet 02/03/19 COPD: No DVT: No Diabetes: Yes - Suicide/Smoking/Psychosocial Hx Smoking Status: No Smoking History: Never smoked Have you smoked in the past 12 months: No Number of Cigarettes Smoked Daily: 0 Hx Alcohol Use: No Drug/Substance Use Hx: No Substance Use Type: None Review of Systems - Review of Systems Constitutional: No: Fever : Yes: See HPI, Other. No: Burning, Dysuria, Discharge, Frequency, Hematuria , Incontinence, Testicular Swelling *Physical Exam - Vital Signs Last Vital Signs Temp Pulse Resp BP Pulse Ox 98.1 F 91 H 19 146/86 100 07/03/19 18:16 07/03/19 18:16 07/03/19 18:16 07/03/19 18:16 07/03/19 18:16 - Physical Exam Comments: 07/03/19 18:37 Left inguinal area normal skin color and temperature no palpable defects. No palpable defects with Valsalva.minimally tender Medical Decision Making - Medical Decision Making 07/03/19 18:36 38-year-old male with left inguinal hernia. Not palpable on examination today *DC/Admit/Observation/Transfer Diagnosis at time of Disposition: Left groin pain, Inguinal hernia - Discharge Dispostion Disposition: HOME Condition at time of disposition: Stable Decision to Admit order: No - Referrals Referrals: Abel Rincon MD [Primary Care Provider] - Abel Guardado MD [Staff Physician] - - Patient Instructions Printed Discharge Instructions: DI for Groin Hernia Additional Instructions: You may take Tylenol and Motrin as directed for pain. Return to the emergency room for worsening symptoms. Follow-up with general surgery in 2-3 days for further evaluation and treatment options. - Post Discharge Activity
== END 2019-07-03 18:45 | disposition home or self-care (01) ==
LOC: JERFT 17:59
DX: K40.90 Unilateral inguinal hernia, without obstruction or gangrene, not specified as recurrent (principal); E11.9 Type 2 diabetes mellitus without complications; Z79.84 Long term (current) use of oral hypoglycemic drugs
CPT/HCPCS: 99281-25

== ENCOUNTER 2019-11-17 08:38 | Emergency (ER) | payer OTHER ==
[2019-11-17 08:45] VITALS: BP 142/77; PULSE 90; TEMP 98.6; BMI 27.0
--- NOTE | 2019-11-17 09:21 | PDOC ---
History of Present Illness - General Chief Complaint: Cold Symptoms Stated Complaint: FLU LIKE SYMPTOMS History Source: Patient Exam Limitations: No Limitations - History of Present Illness Initial Comments: 11/17/19 09:13 Patient is a 39-year-old male with history of HTN, DM, seasonal allergies complaining of flulike symptoms x1 week. States he has had weakness, vomiting, body aches, eyes burning, coughing intermittently. Patient denies fever, chills. Reports that he is well controlled with his high blood pressure and diabetes fingerstick was 144 this morning at home. States his most concerning symptoms is the weakness. PMD: Dr. Abel Rincon PMHX: As above PSOCHX: neg etoh, drug, cig ALL: NKDA GENERAL/CONSTITUTIONAL: [No fever or chills. (+) weakness. No weight change.] HEAD, EYES, EARS, NOSE AND THROAT: [No change in vision. No ear pain or discharge. No sore throat.] CARDIOVASCULAR: [No chest pain or shortness of breath.] RESPIRATORY: [(+) cough,(-) wheezing, or hemoptysis.] GASTROINTESTINAL: [No nausea, vomiting, diarrhea or constipation. No rectal bleeding.] GENITOURINARY: [No dysuria, frequency, or change in urination.] MUSCULOSKELETAL: [No joint or muscle swelling or pain. No neck or back pain.] SKIN AND BREASTS: [No rash or easy bruising.] NEUROLOGIC: [No headache, vertigo, loss of consciousness, or loss of sensation.] PSYCHIATRIC: [No depression or anxiety.] ENDOCRINE: [No increased thirst. No abnormal weight change.] HEMATOLOGIC/LYMPHATIC: [No anemia, easy bleeding, or history of blood clots.] ALLERGIC/IMMUNOLOGIC: [No hives or skin allergy. No latex allergy.] GENERAL: [The patient is awake, alert, and fully oriented, in no acute distress. ] HEAD: [Normal with no signs of trauma.] EYES: [Pupils equal, round and reactive to light, extraocular movements intact, sclera anicteric, conjunctiva clear.] ENT: [Ears normal, nares patent, oropharynx clear without exudates. Moist mucous membranes.] NECK: [Normal range of motion, supple without lymphadenopathy, JVD, or masses.] LUNGS: [Breath sounds equal, clear to auscultation bilaterally. No wheezes, and no crackles.] HEART: [Regular rate and rhythm, normal S1 and S2 without murmur, rub.] ABDOMEN: [Soft, nontender, normoactive bowel sounds. No guarding, no rebound. No masses.] EXTREMITIES: [Normal range of motion, no edema. No clubbing or cyanosis. No cords, erythema, or tenderness.] NEUROLOGICAL: [Cranial nerves II through XII grossly intact. Normal speech, normal gait.] PSYCH: [Normal mood, normal affect.] SKIN: [Warm, Dry, normal turgor, no rashes or lesions noted.] Past History - Past Medical History Allergies/Adverse Reactions: Allergies Allergy/AdvReac Type Severity Reaction Status Date / Time No Known Allergies Allergy Verified 07/03/19 18:18 Home Medications: Ambulatory Orders Meclizine HCl 25 mg PO BID PRN #12 tablet 02/03/19 Metformin HCl [Glucophage] 500 mg PO BID #28 tablet 02/03/19 COPD: No DVT: No Diabetes: Yes - Immunization History Immunization Up to Date: No - Psycho Social/Smoking Cessation Hx Smoking Status: No Smoking History: Never smoked Have you smoked in the past 12 months: No Number of Cigarettes Smoked Daily: 0 Information on smoking cessation initiated: No Hx Alcohol Use: No Drug/Substance Use Hx: No Substance Use Type: None *Physical Exam - Vital Signs Last Vital Signs Temp Pulse Resp BP Pulse Ox 98.6 F 90 18 142/77 99 11/17/19 08:41 11/17/19 08:41 11/17/19 08:41 11/17/19 08:41 11/17/19 08:41 Medical Decision Making - Medical Decision Making 11/17/19 09:13 Patient is a 39-year-old male with history of HTN, DM, seasonal allergies complaining of flulike symptoms x1 week. States he has had weakness, vomiting, body aches, eyes burning, coughing intermittently. Patient denies fever, chills. Reports that he is well controlled with his high blood pressure and diabetes fingerstick was 144 this morning at home. States his most concerning symptoms is the weakness. Symptoms consistent with flulike illness Will rule out pneumonia -chest x-ray Influenza swab Reassess Chest x-ray read as negative Influenza swab negative I discussed the physical exam findings, ancillary test results and final diagnoses with the patient. I answered all of the patient's questions. The patient was satisfied with the care received and felt comfortable with the discharge plan and treatment plan. The Patient agrees to follow up with the primary care physician within 24-72 hours. Discharge - Discharge Information Problems reviewed: Yes Clinical Impression/Diagnosis: Flu syndrome, Weakness Condition: Stable Disposition: HOME - Follow up/Referral Referrals: Abel Rincon MD [Primary Care Provider] - - Patient Discharge Instructions Patient Printed Discharge Instructions: DI for Viral Upper Respiratory Infection -- Adult Additional Instructions: Your Discharge Instructions: You must call primary care physician within 24 hours to arrange follow-up. Return to the Emergency Department with any new, persistent or worsening symptoms, for fever, chills, SOB, dizziness or any other concerning changes that may occur. Drink lots of fluids get plenty of rest. - Post Discharge Activity Work/Back to School Note: Back to Work
== END 2019-11-17 10:01 | disposition home or self-care (01) ==
LOC: JERFT 08:38
DX: J11.1 Influenza due to unidentified influenza virus with other respiratory manifestations (principal); R53.1 Weakness; I10 Essential (primary) hypertension; E11.9 Type 2 diabetes mellitus without complications; J30.2 Other seasonal allergic rhinitis
CPT/HCPCS: 71046-TC-FY; 87804; 99281-25

== ENCOUNTER 2023-09-11 07:29 | Emergency (ER) | payer SELFPAY ==
[2023-09-11 08:07] VITALS: BMI 28.6
[2023-09-11 10:39] LABS: URINE APPEARANCE CLEAR; URINE BILIRUBIN NEGATIVE (NEGATIVE); URINE COLOR YELLOW; URINE GLUCOSE (UA) NEGATIVE (NEGATIVE); URINE KETONE NEGATIVE (NEGATIVE); URINE LEUK ESTERASE NEGATIVE (NEGATIVE); URINE NITRITE NEGATIVE (NEGATIVE); URINE PROTEIN NEGATIVE (NEGATIVE)
[2023-09-11 11:19] VITALS: BP 139/92; PULSE 82; RESP 20; TEMP 98.1
[2023-09-11 12:04] LABS: SYPHILIS W/ RPR CONF NON-REACTIVE (NONREACTIVE)
[2023-09-11 12:31] LABS: HIV INTERPRETATION NEGATIVE (NEGATIVE)
== END 2023-09-11 11:20 | disposition home or self-care (01) ==
LOC: JER 07:29
DX: R10.30 Lower abdominal pain, unspecified (principal); N48.89 Other specified disorders of penis
CPT/HCPCS: 36415; 81003; 86704; 86780; 86803; 87086; 87340; 87389; 87491; 87517; 87591; 99283-25